=== PATIENT | female | born 1940 | race Caucasian/White ===

== ENCOUNTER 2020-12-06 10:55 | Emergency (ER) | payer MEDICARE, OTHER ==
[~2020-12-06] VITALS: Ht 157.5 cm; Wt 63.5 kg
[~2020-12-06 10:55] MED LIST: ALBIPROI; ASPI81CH PO; Ativan1 MG PO; BENZ100A PO; BUDE200IP INH; BUPR150ER PO; CEPH500 PO; CITA20 PO; DONE10 PO; DOXE10 PO; Duoneb 2.5-0.5 M3 ML INH; IPRAOI INH; LEVFLO500 PO; LEVSOD88 PO; LORA1 PO; METPRE4DP PO; MIRALAX17 GM PO; NAPR500 PO; NYST237S PO; OMEP20ER PO; PANT40 PO; PRED20 PO; QVAR7.3 G1 IH; SENN187 PO; SIMV10 PO; Synthroid88 MCG PO; Ventolin Soln3 ML INH; Zofran8 MG PO
[2020-12-06] MEDS ORDERED: SYNTHROID75 MCG PO (13:01)
[2020-12-06] MEDS ORDERED: Hydroxychloroq200 MG PO (13:01)
[2020-12-06] MEDS ORDERED: Norco 5-325 Ta1 EACH PO (13:18)
[2020-12-06] MEDS ORDERED: ONDA4ODT MM (13:34)
== END 2020-12-06 13:45 | disposition home or self-care (01) ==
LOC: ER 10:55
DX: M54.16 Radiculopathy, lumbar region (principal); J44.9 Chronic obstructive pulmonary disease, unspecified; E03.9 Hypothyroidism, unspecified; Z79.899 Other long term (current) drug therapy; Z79.82 Long term (current) use of aspirin; Z91.030 Bee allergy status; Z87.891 Personal history of nicotine dependence
CPT/HCPCS: 72100; 99283-25; A9270

== ENCOUNTER → 2021-01-11 | Outpatient (CLI) | payer MEDICARE, OTHER ==
[~2021-01-11] MED LIST changes: +Hydroxychloroq200 MG PO; +Norco 5-325 Ta1 EACH PO; +ONDA4ODT MM; +SYNTHROID75 MCG PO
== END | disposition home or self-care (01) ==
LOC: LAB 11:08 → LAB SHORT 11:08 → LAB FUT 01-11 16:35
DX: R10.9 Unspecified abdominal pain (principal)
CPT/HCPCS: 87086

== ENCOUNTER 2021-07-27 10:40 | Emergency (ER) | payer MEDICARE, OTHER ==
[~2021-07-27] VITALS: Ht 147.3 cm; Wt 60.3 kg
[2021-07-27] MEDS ORDERED: BENZ100A PO (11:21)
[2021-07-27] MEDS ORDERED: MONT10T PO (11:22)
[2021-07-27] MEDS ORDERED: IPRAT-ALBUT 0.5-3 ML INH (11:23)
[2021-07-27 13:07] LABS: BASOPHILS ABSOLUTE AUTO 0.05 K/mm3 (0.00-0.23); BASOPHILS PERCENT AUTO 1 % (0-2); EOSINOPHILS ABSOLUTE AUTO 0.11 K/mm3 (0.00-0.68); EOSINOPHILS PERCENT AUTO 1 % (0-6); Hematocrit 36.6 % (33.0-51.0); Hemoglobin 11.6 g/dL (11.5-16.0); IMMATURE GRAN ABSOLUTE AUTO 0.03 K/mm3 (0.00-0.10); IMMATURE GRAN PERCENT AUTO 0 % (0-1); LYMPHOCYTES ABSOLUTE AUTO 1.13 K/mm3 (0.84-5.20); LYMPHOCYTES PERCENT AUTO 14 % (21-46); MONOCYTES ABSOLUTE AUTO 0.26 K/mm3 (0.16-1.47); MONOCYTES PERCENT AUTO 3 % (4-13); Mean Corpuscular HGB 29.1 pg (26.0-34.0); Mean Corpuscular HGB Conc 31.7 g/dL (31.5-36.5); Mean Corpuscular Volume 92 fL (80-100); Mean Platelet Volume 9.5 fL (9.1-12.4); NEUTROPHILS ABSOLUTE AUTO 6.63 K/mm3 (1.96-9.15); NEUTROPHILS PERCENT AUTO 81 % (41-73); Platelet Count 306 K/mm3 (150-400); RDW Coefficient Variation 13.1 % (11.7-14.2); RDW Standard Deviation 43.9 fL (35.1-46.3); Red Blood Cell Count 3.99 M/mm3 (3.80-5.20); White Blood Cell Count 8.21 K/mm3 (4.00-11.30)
[2021-07-27 13:52] LABS: Alanine Aminotransfer (ALT/SGP 19 U/L (12-78); Albumin, Blood 3.3 g/dL (3.4-5.0); Albumin/Globulin Ratio 0.9 (0.8-1.8); Alk Phos 105 U/L (50-136); Anion Gap 5 mmol/L (6-16); Aspartate Aminotrans (AST/SGOT 26 U/L (12-37); Bilirubin, Total 0.2 mg/dL (0.1-1.0); Blood Urea Nitrogen 10 mg/dL (8-24); Bun/Creatinine Ratio 16.4 (12.0-20.0); CO2, Blood 24 mmol/L (21-32); Calcium, Blood 8.2 mg/dL (8.5-10.1); Chloride, Blood 111 mmol/L (98-108); Creatinine, Blood 0.61 mg/dL (0.40-1.00); Globulin, Blood 3.8 g/dL (2.2-4.0); Glomerular Filtration Rate >60 (60-); Glucose, Blood 112 mg/dL (70-99); Potassium, Blood 4.1 mmol/L (3.5-5.5); Sodium, Blood 140 mmol/L (136-145); Total Protein, Blood 7.1 g/dL (6.4-8.2)
[2021-07-27] MEDS ORDERED: ONDA4ODT MM (14:10)
[2021-07-27] MEDS ORDERED: MECL25 PO (14:10)
== END 2021-07-27 14:25 | disposition home or self-care (01) ==
LOC: ER 10:40
PROVIDERS: Emergency Medicine
DX: R00.1 Bradycardia, unspecified (principal); H81.8X2 Other disorders of vestibular function, left ear; E03.9 Hypothyroidism, unspecified; Z87.891 Personal history of nicotine dependence; Z79.899 Other long term (current) drug therapy; Z91.030 Bee allergy status; Z79.82 Long term (current) use of aspirin
CPT/HCPCS: 36415; 70450; 80053; 85025; 93005; 93010; 96374; 99284-25; A9270; J2405; J7030

== ENCOUNTER → 2021-12-23 | Outpatient (CLI) | payer MEDICARE, OTHER ==
[~2021-12-23] MED LIST changes: +IPRAT-ALBUT 0.5-3 ML INH; +MECL25 PO; +MONT10T PO
== END | disposition home or self-care (01) ==
LOC: PLD 13:43 → LAB SHORT 13:43
DX: L57.0 Actinic keratosis (principal)
CPT/HCPCS: 88305

== ENCOUNTER 2023-07-30 08:51 | Day surgery (SDC) | payer MEDICARE ==
[~2023-07-30] VITALS: Ht 144.8 cm; Wt 61.6 kg
[~2023-07-30 08:51] MED LIST changes: +ADVAIR; +AMLO5 PO; +Balanced Salt Epinephrine Irrigation Solution 500 mL IR SCH; +COMBIVENT RESPIM4 G1; +ESCI10 PO; +FAMO20 PO; +FLONASE ALLERG9.9 M2; +Lidocaine HCl/Pf 1% 5 ML VIAL XX SCH; +Moxifloxacin HCL 0.5 MG/0.1 ML 0.4MLSYR RIGHTEYE SCH; +NS 500 ML IV ONE; +PHENYLEPHRINE\\TROPICAMIDE\\TETRACAINE OPHTHALMIC DILATING SOLN RIGHTEYE PRN; +Povidone-Iodine 450 DROP/30 ML Solution ONE; +Povidone-Iodine 450 DROP/30 ML Solution RIGHTEYE SCH; +Triamcinolone Inj Susp 40 MG / ML 1ML Vial INJ SCH; +Triamcinolone Inj Susp 40 MG / ML 1ML Vial ONE
[2023-07-30] MEDS ORDERED: NS 500 ML IV ONE (09:17)
--- NOTE | 2023-07-30 09:17 | NUR ---
07/30/23 0917 Chelsey Galindo AT 0910 PLETHEOET AT 0912
[2023-07-30] MEDS ORDERED: FentaNYL Citrate 50 MCG/ML 2 ML Injection ONE (09:27)
[2023-07-30] MEDS ORDERED: Tetracaine HCl 0.5% Opth Soln 15 ml RIGHTEYE ONE (09:49)
[2023-07-30] MEDS ORDERED: Midazolam HCl 1MG / ML 2ML Vial ONE (09:59)
[2023-07-30 10:21] VITALS: BP 159/61
== END 2023-07-30 10:34 | disposition home or self-care (01) ==
LOC: ORSCSDS 08:51
PROVIDERS: Ophthalmology
PROC: 08RJ3JZ Replacement of Right Lens with Synthetic Substitute, Percutaneous Approach (ICD-10-PCS; principal; 2023-07-30 10:00)
DX: H25.13 Age-related nuclear cataract, bilateral (principal); I10 Essential (primary) hypertension; K21.9 Gastro-esophageal reflux disease without esophagitis; J44.9 Chronic obstructive pulmonary disease, unspecified; F03.90 Unspecified dementia, unspecified severity, without behavioral disturbance, psychotic disturbance, mood disturbance, and anxiety; R06.02 Shortness of breath; Z87.891 Personal history of nicotine dependence; Z79.899 Other long term (current) drug therapy
CPT/HCPCS: J2250; J3010; J3301; J7040; V2632

== ENCOUNTER 2024-04-09 00:15 | Inpatient (IN) | payer MEDICARE ==
[~2024-04-09] VITALS: Ht 162.6 cm; Wt 56.2 kg
[~2024-04-09 00:15] MED LIST changes: -Balanced Salt Epinephrine Irrigation Solution 500 mL IR SCH; +COMBIVENT RESPIM4 G1 INH; -Lidocaine HCl/Pf 1% 5 ML VIAL XX SCH; -Moxifloxacin HCL 0.5 MG/0.1 ML 0.4MLSYR RIGHTEYE SCH; -NS 500 ML IV ONE; -PHENYLEPHRINE\\TROPICAMIDE\\TETRACAINE OPHTHALMIC DILATING SOLN RIGHTEYE PRN; -Povidone-Iodine 450 DROP/30 ML Solution ONE; -Povidone-Iodine 450 DROP/30 ML Solution RIGHTEYE SCH; -Triamcinolone Inj Susp 40 MG / ML 1ML Vial INJ SCH; -Triamcinolone Inj Susp 40 MG / ML 1ML Vial ONE
[2024-04-09 03:31] LABS: Alanine Aminotransfer (ALT/SGP 23 U/L (12-78); Albumin, Blood 3.4 g/dL (3.4-5.0); Albumin/Globulin Ratio 0.8 (0.8-1.8); Alk Phos 150 U/L (50-136); Anion Gap 12 mmol/L (3-11); Aspartate Aminotrans (AST/SGOT 121 U/L (12-37); Bilirubin, Total 4.8 mg/dL (0.1-1.0); Blood Urea Nitrogen 33 mg/dL (8-24); Bun/Creatinine Ratio 30.3 (12.0-20.0); CO2, Blood 23 mmol/L (21-32); Calcium, Blood 8.7 mg/dL (8.5-10.1); Chloride, Blood 107 mmol/L (98-108); Creatinine, Blood 1.09 mg/dL (0.40-1.00); Ethanol (Alcohol), Blood, Med <3 mg/dL; Free Thyroxine 1.14 ng/dL (0.70-1.60); Globulin, Blood 4.1 g/dL (2.2-4.0); Glomerular Filtration Rate 50 (60-); Glucose, Blood 119 mg/dL (70-99); Potassium, Blood 4.8 mmol/L (3.5-5.5); Sodium, Blood 137 mmol/L (136-145); Total Protein, Blood 7.5 g/dL (6.4-8.2)
[2024-04-09 04:27] LABS: Source, Urine Clean Catch
[2024-04-09] MEDS ORDERED: Azithromycin 500 MG in NS 250 ML IV ONE (04:30)
[2024-04-09] MEDS ORDERED: CefTRIAXone Sodium 1,000 MG in NS 100 ML IV ONE (04:30)
[2024-04-09 04:35] LABS: Appearance, Urine Bloody (Clear); Blood, Urine 5+ (Neg); Color, Urine Brown (P-Yellow); Glucose Qualitative, Urine Neg (Neg); Ketones, Urine Neg (Neg); Leukocyte Esterase, Urine 2+ (Neg); Nitrite, Urine Neg (Neg); Protein, Urine 4+ (Neg); Urobilinogen, Urine 1+ (Normal)
[2024-04-09 04:47] LABS: U Amphetamine Screen Not Detected; U Barbituate Screen Not Detected; U Benzodiazapine Screen DETECTED; U Buprenorphine Screen Not Detected; U Cannabinoids Screen Not Detected; U Cocaine Screen Not Detected; U Methadone Screen Not Detected; U Methamphetamine Screen Not Detected; U Opiates Screen Not Detected; U Oxycodone Screen Not Detected; U Phencyclidine Screen Not Detected
[2024-04-09 04:48] LABS: Bilirubin, Urine 1+ (Neg)
[2024-04-09 04:53] LABS: Amorphous Heavy (0-Heavy); Bacteria Mod /hpf; Squamous Epithelial Cells Not Seen /hpf (Few)
[2024-04-09 05:17] LABS: Hematocrit 19.9 % (33.0-51.0); Hemoglobin 7.1 g/dL (11.5-16.0); Mean Corpuscular HGB 35.7 pg (26.0-34.0); Mean Corpuscular HGB Conc 35.7 g/dL (31.5-36.5); Mean Corpuscular Volume 100 fL (80-100); NRBC ABSOLUTE 0.51 K/mm3 (0.00-0.02); NRBC Auto 1.8 /100 WBC (0.0-0.2); RDW Coefficient Variation 18.2 % (11.7-14.2); RDW Standard Deviation 57.3 fL (35.1-46.3); Red Blood Cell Count 1.99 M/mm3 (3.80-5.20)
[2024-04-09 05:25] LABS: White Blood Cell Count 26.94 K/mm3 (4.00-11.30)
[2024-04-09 05:26] LABS: Mean Platelet Volume 9.4 fL (9.1-12.4); Platelet Count 462 K/mm3 (150-400)
[2024-04-09 05:30] LABS: BAND PERCENT MAN 4 % (0-8); BASOPHILS ABSOLUTE MAN 0.26 K/mm3 (0.00-0.23); BASOPHILS PERCENT MAN 1 % (0-2); EOSINOPHILS ABSOLUTE MAN 3.23 K/mm3 (0.00-0.68); EOSINOPHILS PERCENT MAN 12 % (0-6); LYMPHOCYTES ABSOLUTE MAN 2.15 K/mm3 (0.84-5.20); LYMPHOCYTES PERCENT MAN 8 % (21-46); MONOCYTES ABSOLUTE MAN 2.42 K/mm3 (0.16-1.47); MONOCYTES PERCENT MAN 9 % (4-13); MYELOCYTE ABSOLUTE MAN 0.53 K/mm3 (0.00-0.00); MYELOCYTE PERCENT MAN 2 % (0-0); NEUTROPHILS ABSOLUTE MAN 18.31 K/mm3 (1.96-9.15); SEG NEUTROPHILS PERCENT MAN 64 % (41-73); TOTAL CELLS COUNTED 100
[2024-04-09] MEDS ORDERED: FLU VACC TS2024-25(6MOS UP)/PF 45 MCG/0.5 ML SYRINGE IM ONE (05:45)
[2024-04-09] MEDS ORDERED: Ondansetron HCl 2 MG / ML 2ML Vial IV PRN (05:45)
[2024-04-09 06:31] LABS: Bilirubin, Direct 0.6 mg/dL (0.0-0.3); Bilirubin, Indirect 3.7 mg/dL (0.1-0.7); Bilirubin, Total 4.3 mg/dL (0.1-1.0); Percent Saturation 95.1 % (15.0-50.0)
[2024-04-09] MEDS ORDERED: Lactobacil 2-S.Thermo-Bifido 1 1 Cap PO SCH (09:00)
[2024-04-09 09:06] LABS: IMMATURE RETIC FRACTION 37.6 % (2.3-16.0); RETIC HGB EQUIVALENT 40.6 pg (28.20-36.60); RETICULOCYTE ABSOLUTE 0.1909 M/mm3 (0.0200-0.1100); RETICULOCYTE COUNT PERCENT 10.1 % (0.50-2.50)
[2024-04-09] MEDS ORDERED: BUPROPION XL150 M1 PO (10:58)
[2024-04-09] MEDS ORDERED: COMBIVENT RESPIM4 G1 IH (10:59)
[2024-04-09] MEDS ORDERED: ALEN70 PO (11:01)
[2024-04-09 11:02] LABS: Hematocrit 20.7 % (33.0-51.0); Hemoglobin 7.5 g/dL (11.5-16.0); IMMATURE RETIC FRACTION 42.7 % (2.3-16.0); RETIC HGB EQUIVALENT 41.1 pg (28.20-36.60); RETICULOCYTE ABSOLUTE 0.1553 M/mm3 (0.0200-0.1100); RETICULOCYTE COUNT PERCENT 7.43 % (0.50-2.50)
[2024-04-09 14:07] VITALS: BP 118/77
[2024-04-09 15:46] VITALS: BP 137/60
--- NOTE | 2024-04-09 15:49 | NUR ---
NOTE: AT 1541 THIS RN NOTIFIED BY FURNACE COOLERMOMO MAJOR. PER MOMO PATIENT HAD A 12 SECONDS RUN OF SVT. THIS RN ASSESS THE PATIENT; PATIENT LAYING IN BED APPEARS SLEEPING/SNOORING, DENIES CP/PRESSURE, SOB, N/V AND DIZZINESS. VITALS TAKEN; TEMP 97.7, RR 16, HR 75 BPM, BP 137/60, O2 96% ON RA. NOTIFIED DR. FAM, NO NEW ORDERS, CTM.
[2024-04-09] MEDS ORDERED: NS 1,000 ML IV SCH (15:50)
[2024-04-09 16:24] LABS: Hematocrit 19.4 % (33.0-51.0)
--- NOTE | 2024-04-09 16:53 | NUR ---
ADMISSION/SHIFT SUMMARY: PATIENT ARRIVES TO ROOM AT 1400 VIA GURNEY FROM ER FOR DX'S OF ANEMIA. PATIENT TRANSFERRED TO BED c 1 ASSIST. ADMISSION AND SKIN ASSESSMENT c 2 RN'S VERIFIED COMPLETED. PATIENT OREINTATED TO ROOM AND CALL SYSTEM. PATIENT A/OX3 AND FORGETFUL AT TIMES. PATIENT CALM, PLEASANT, COOPERATIVE c CARE AND ABLE TO FOLLOW DIRECTION. PATIENT DENIES CP/PRESSURE, SOB, N/V AND DIZZINESS. PATIENT ON TELE, SR HR IN THE 70'S BPM. PATIENT HAD OT EPISODE OF SVT (SEE EARLIER NOTE). DR. FAM'S AWARE OF THIS ISSUE. PATIENT REPEAT H/H THIS PM 7.0/19.4. SCD'S TO BLE'S IN PLACED. VITAL SIGNS REVIEWED. CALL LIGHT IN REACH.
[2024-04-09] MEDS ORDERED: Ipratropium/Albuterol SulF 2.5-0.5MG/3 ML Amp INH SCH ×2 (17:10→19:03)
[2024-04-09 19:10] VITALS: BP 116/58
[2024-04-09] MEDS ORDERED: Famotidine 20 MG Tab PO SCH (21:00)
[2024-04-09 22:09] LABS: Hemoglobin 6.4 g/dL (11.5-16.0); Mean Corpuscular HGB 36.8 pg (26.0-34.0); Mean Corpuscular HGB Conc 36.6 g/dL (31.5-36.5); Mean Corpuscular Volume 101 fL (80-100); Mean Platelet Volume 9.1 fL (9.1-12.4); NRBC Auto 0.9 /100 WBC (0.0-0.2); Platelet Count 361 K/mm3 (150-400); RDW Coefficient Variation 19.6 % (11.7-14.2); RDW Standard Deviation 55.2 fL (35.1-46.3); Red Blood Cell Count 1.74 M/mm3 (3.80-5.20); White Blood Cell Count 23.05 K/mm3 (4.00-11.30)
[2024-04-09 22:12] LABS: Hematocrit 17.5 % (33.0-51.0)
[2024-04-09 22:31] LABS: BAND PERCENT MAN 5 % (0-8); BASOPHILS ABSOLUTE MAN 0.23 K/mm3 (0.00-0.23); BASOPHILS PERCENT MAN 1 % (0-2); EOSINOPHILS ABSOLUTE MAN 4.37 K/mm3 (0.00-0.68); EOSINOPHILS PERCENT MAN 19 % (0-6); LYMPHOCYTES ABSOLUTE MAN 2.76 K/mm3 (0.84-5.20); LYMPHOCYTES PERCENT MAN 12 % (21-46); METAMYELOCYTE ABSOLUTE MAN 0.46 K/mm3 (0.00-0.00); METAMYELOCYTE PERCENT MAN 2 % (0-0); MONOCYTES ABSOLUTE MAN 0.69 K/mm3 (0.16-1.47); MONOCYTES PERCENT MAN 3 % (4-13); MYELOCYTE ABSOLUTE MAN 0.23 K/mm3 (0.00-0.00); MYELOCYTE PERCENT MAN 1 % (0-0); NEUTROPHILS ABSOLUTE MAN 14.29 K/mm3 (1.96-9.15); SEG NEUTROPHILS PERCENT MAN 57 % (41-73); TOTAL CELLS COUNTED 100
--- NOTE | 2024-04-09 23:35 | NUR ---
RECEIVED CALL BACK FROM HOSPITALIST WHO GAVE VERBAL ORDER TO TRANSFUSE ONE UNIT PRBCs IF PT'S HBG DROPS BELOW 6 OR SHE BECOMES SYMPTOMATIC. PT HAS DENIED SHORTNESS OF BREATH THIS SHIFT. PT CURRENTLY LYING QUIETLY IN BED WITH EYES CLOSED AND EVEN, UNLABORED RESPIRATIONS. TELE SR@ 77 W/PACs. HOSPITALIST REQUESTED LABS BE DRAWN AT 0500, CALLED LAB AND REQUESTED.
[2024-04-10 04:27] VITALS: BP 140/64
[2024-04-10 04:55] LABS: Hematocrit 19.3 % (33.0-51.0); Hemoglobin 6.9 g/dL (11.5-16.0); Mean Corpuscular HGB 36.5 pg (26.0-34.0); Mean Corpuscular HGB Conc 35.8 g/dL (31.5-36.5); Mean Corpuscular Volume 102 fL (80-100); Mean Platelet Volume 9.2 fL (9.1-12.4); NRBC ABSOLUTE 0.17 K/mm3 (0.00-0.02); NRBC Auto 0.7 /100 WBC (0.0-0.2); Platelet Count 377 K/mm3 (150-400); RDW Coefficient Variation 21.2 % (11.7-14.2); RDW Standard Deviation 57.3 fL (35.1-46.3); Red Blood Cell Count 1.89 M/mm3 (3.80-5.20); White Blood Cell Count 22.76 K/mm3 (4.00-11.30)
--- NOTE | 2024-04-10 04:56 | NUR ---
SHIFT SUMMARY: SHIV IS A&OX2-3. VSS, NO ACUTE EVENTS OVERNIGHT. PT'S HR DOES INCREASE TO THE LOW 110'S WHEN AMBULATING TO THE BATHROOM. IV TO L FA PATENT, FLUIDS INFUSING PER MAR. SHE HAS RESTED QUIETLY FOR THE MAJORITY OF THE SHIFT. SHE HAS DENIED ANY DIFFICULTY BREATHING, DIZZINESS, OR LIGHTHEADEDNESS. PT'S RESPIRATORY RATE DOES INCREASE WHEN UP TO THE BATHROOM, RETURNED TO BASELINE SHORTLY AFTER RETURNING TO BED. SHE IS LYING IN BED WITH THE CALL LIGHT IN REACH, BED IN LOWEST POSITION. WILL GIVE REPORT TO DAY SHIFT RN.
[2024-04-10 05:18] LABS: Albumin/Globulin Ratio 0.8 (0.8-1.8); Bilirubin, Total 1.3 mg/dL (0.1-1.0); Calcium, Blood 8.1 mg/dL (8.5-10.1); Creatinine, Blood 0.87 mg/dL (0.40-1.00); Magnesium, Blood 2.4 mg/dL (1.6-2.4); Potassium, Blood 3.6 mmol/L (3.5-5.5)
[2024-04-10 05:42] LABS: BASOPHILS PERCENT MAN 0 % (0-2); EOSINOPHILS ABSOLUTE MAN 7.96 K/mm3 (0.00-0.68); EOSINOPHILS PERCENT MAN 35 % (0-6); LYMPHOCYTES ABSOLUTE MAN 4.55 K/mm3 (0.84-5.20); LYMPHOCYTES PERCENT MAN 20 % (21-46); METAMYELOCYTE ABSOLUTE MAN 0.22 K/mm3 (0.00-0.00); METAMYELOCYTE PERCENT MAN 1 % (0-0); MONOCYTES ABSOLUTE MAN 0.22 K/mm3 (0.16-1.47); MONOCYTES PERCENT MAN 1 % (4-13); NEUTROPHILS ABSOLUTE MAN 9.78 K/mm3 (1.96-9.15); SEG NEUTROPHILS PERCENT MAN 43 % (41-73); TOTAL CELLS COUNTED 100
[2024-04-10] MEDS ORDERED: Azithromycin 500 MG in NS 250 ML IV SCH (06:00)
[2024-04-10] MEDS ORDERED: Levothyroxine Sodium 0.075 MG Tab PO SCH (06:00)
[2024-04-10] MEDS ORDERED: CefTRIAXone Sodium 1,000 MG in NS 100 ML IV SCH (06:00)
[2024-04-10 07:43] VITALS: BP 127/58
[2024-04-10] MEDS ORDERED: Citalopram Hydrobromide 20 MG Tab PO SCH (09:00)
[2024-04-10] MEDS ORDERED: AmLODIPine Besylate 5 MG Tab PO SCH (09:00)
[2024-04-10] MEDS ORDERED: Fluticasone 0.05% Nasal Spray SCH (09:00)
[2024-04-10] MEDS ORDERED: buPROPion HCL 150 MG TAB.SR.12H PO SCH (09:00)
[2024-04-10] MEDS ORDERED: Dexamethasone Sod Phos 10 MG/ML 1ML VIAL IV SCH (10:00)
[2024-04-10] MEDS ORDERED: Enoxaparin 40 MG/0.4 ML SYR SC SCH (10:00)
[2024-04-10 14:39] VITALS: BP 113/63
--- NOTE | 2024-04-10 16:36 | NUR ---
SHIFT SUMMARY: NO ACUTE EVENTS THIS SHIFT. PATIENT A/OX2-3, FORGETFUL AND SOME CONFUSION ON/OFF T/O THE DAY. PATIENT DENIES CP/PRESSURE, SOB, N/V AND DIZZINESS. PATIENT HAS HAD NO EVENTS ON TELE, SR HR IN THE HIGH 70'S BPM. PATIENT REPORTS NO APPETITE, DECLINED HER BREAKFAST AND LUNCH MEAL, CONTINENT OF BLADDER, AMBULATES TO BATHROOM c SBA/FWW. PATIENT SLEPT ON/OFF T/O SHIFT. PATIENT STARTED ON DEXAMETHASONE PER ORDER. PATIENT SON CAME FOR VISIT THIS AM AND STAYED FOR AN HOUR, UPDATE GIVEN TO SON REGARDING PATIENT CONDITION AND PLAN OF CARE. PATIENT SON VERBALIZED UNDERSTANDING AND NO FURTHER QUESTIONS. PATIENT RECEIVED SCHEDULED MEDS PER EMAR. VITAL SIGNS REVIEWED. BED ALARM ON FOR SAFETY. CALL LIGHT IN REACH.
[2024-04-10 19:46] VITALS: BP 139/77
[2024-04-11] VITALS (10 sets, daily range): BP systolic 110–154; BP diastolic 50–104
--- NOTE | 2024-04-11 04:25 | NUR ---
NOC SUMMARY- PT HAD NO ISSUES THIS SHIFT. PT HAS RESTED COMFORTABLY THROUGHOUT SHIFT. PT DENIES ANY DISCOMFORT. PT TURNS SELF IN BED. NO TELE EVENTS REPORTED. CALL LIGHT IN REACH AND BED ALARM ON.
[2024-04-11 06:20] LABS: Mean Corpuscular HGB 38.2 pg (26.0-34.0); Mean Corpuscular HGB Conc 35.6 g/dL (31.5-36.5); Mean Platelet Volume 9.8 fL (9.1-12.4); NRBC ABSOLUTE 0.32 K/mm3 (0.00-0.02); NRBC Auto 1.7 /100 WBC (0.0-0.2); Platelet Count 387 K/mm3 (150-400); RDW Coefficient Variation 24.8 % (11.7-14.2); RDW Standard Deviation 60.5 fL (35.1-46.3); Red Blood Cell Count 1.52 M/mm3 (3.80-5.20); White Blood Cell Count 18.71 K/mm3 (4.00-11.30)
[2024-04-11 06:25] LABS: Mean Corpuscular Volume 107 fL (80-100)
[2024-04-11 06:26] LABS: Hematocrit 16.3 % (33.0-51.0); Hemoglobin 5.8 g/dL (11.5-16.0)
--- NOTE | 2024-04-11 06:46 | NUR ---
0630- CRITICAL LAB VALUES REPORTED. HGB AND HCT. PROVIDER NOTIFIED AND ORDER FOR 1 UNIT PRBC WAS ORDERED.
--- NOTE | 2024-04-11 07:30 | NUR ---
DR FAM NOTIFIED OF HIGH TRANSFUSION RISK AND HIGH RISK TRANSFUSION FORM THAT NEEDS TO BE SIGNS PRIOR TO TRANSFUSION CONCERNING ORDER OF 1 UNIT OF BLOOD. ALSO NOTIFIED OF THE PT'S HGB LEVELS.
[2024-04-11 07:31] LABS: BAND PERCENT MAN 1 % (0-8); BASOPHILS PERCENT MAN 0 % (0-2); EOSINOPHILS PERCENT MAN 0 % (0-6); LYMPHOCYTES ABSOLUTE MAN 5.23 K/mm3 (0.84-5.20); LYMPHOCYTES PERCENT MAN 28 % (21-46); METAMYELOCYTE ABSOLUTE MAN 0.18 K/mm3 (0.00-0.00); METAMYELOCYTE PERCENT MAN 1 % (0-0); MONOCYTES ABSOLUTE MAN 1.12 K/mm3 (0.16-1.47); MONOCYTES PERCENT MAN 6 % (4-13); MYELOCYTE ABSOLUTE MAN 0.18 K/mm3 (0.00-0.00); MYELOCYTE PERCENT MAN 1 % (0-0); NEUTROPHILS ABSOLUTE MAN 11.97 K/mm3 (1.96-9.15); SEG NEUTROPHILS PERCENT MAN 63 % (41-73); TOTAL CELLS COUNTED 100
[2024-04-11] MEDS ORDERED: Ondansetron HCl 2 MG / ML 2ML Vial IV ONE ×2 (11:40→17:40)
[2024-04-11] MEDS ORDERED: Acetaminophen 325 MG TABLET PO ONE ×2 (11:40→17:40)
[2024-04-11] MEDS ORDERED: DiphenhydrAMINE HCl 50 MG/ML 1ML Vial IV PRN (11:40)
[2024-04-11] MEDS ORDERED: NS 250 ML IV PRN (11:50)
[2024-04-11] MEDS ORDERED: [UNRECOGNIZED DRUG - OTHER] IV ONE (12:00)
--- NOTE | 2024-04-11 13:00 | NUR ---
BLOOD VERIFIED BY MONA GONZALEZ AND SEAN GONZALEZ.
[2024-04-11] MEDS ORDERED: RITUXIMAB ABBS IV SCH (16:00)
[2024-04-11] MEDS ORDERED: SODIUM CHLORIDE IV SCH (16:00)
--- NOTE | 2024-04-11 18:38 | NUR ---
PT IS A/OX4, CONFUSION AT TIMES. PT ON RA, UP WITH SBA TO THE RESTROOM. 2L NC DELIVERED DURING AMBULATION DUE TO SOB. PT ON TELE RUNNING SINUS RYTHYM IN THE 'S. PT RECIEVED 1 UNIT OF BLOOD THIS AFTERNOON. CURRENTLY RUNNING RUTUXIMAB. PT VISITED BY DAUGHTER DURING THE DAY.
[2024-04-11 22:40] LABS: HAPTOGLOBIN <10 mg/dL (30-200)
[2024-04-11 23:13] LABS: MYOGLOBIN SERUM 97 ng/mL (<=58)
[2024-04-12 05:11] VITALS: BP 129/65
[2024-04-12 06:02] LABS: Hematocrit 25.3 % (33.0-51.0); Hemoglobin 8.8 g/dL (11.5-16.0); Mean Corpuscular HGB 34.8 pg (26.0-34.0); Mean Corpuscular HGB Conc 34.8 g/dL (31.5-36.5); Mean Platelet Volume 9.3 fL (9.1-12.4); NRBC ABSOLUTE 0.25 K/mm3 (0.00-0.02); NRBC Auto 1.5 /100 WBC (0.0-0.2); Platelet Count 334 K/mm3 (150-400); RDW Standard Deviation 56.1 fL (35.1-46.3); Red Blood Cell Count 2.53 M/mm3 (3.80-5.20); White Blood Cell Count 16.51 K/mm3 (4.00-11.30)
[2024-04-12 06:04] LABS: Mean Corpuscular Volume 100 fL (80-100)
[2024-04-12 06:29] LABS: Bun/Creatinine Ratio 13.7 (12.0-20.0); Calcium, Blood 7.8 mg/dL (8.5-10.1); Creatinine, Blood 0.81 mg/dL (0.40-1.00); Potassium, Blood 3.5 mmol/L (3.5-5.5)
--- NOTE | 2024-04-12 06:47 | NUR ---
SHIFT SUMMARY PT RECEIVED DOSE OF RITUXIMAB WITHOUT ANY SIDE EFFECTS NOTED. OOB WITH SBA TO BATHROOM. PT DENIES SOB WHEN AMBULATING. IV CHANGED DUE TO LEAKING. IV ANTIBIOTICS CONTINUE. SLEPT OFF/ON THROUGH THE NIGHT. BED ALARM ON, SIDE RAILS UP X2, CALL LIGHT WITHIN REACH.
[2024-04-12 07:06] VITALS: BP 143/77
[2024-04-12] MEDS ORDERED: Potassium Chloride 20 MEQ TabCR PO ONE (10:50)
[2024-04-12 15:13] VITALS: BP 132/86
[2024-04-12 16:37] LABS: HEPATITIS A ANTIBODY, IGM Negative (Negative); HEPATITIS B CORE ANTIBODY, IGM Negative (Negative); HEPATITIS B SURFACE ANTIGEN Negative (Negative); HEPATITIS C AB CIA INTERP Negative (Negative)
--- NOTE | 2024-04-12 17:00 | NUR ---
SHIFT SUMMARY PT IS A/OX3-4, CONFUSION AT TIMES OF DATE AND TIME. NO ACUTE EVENTS THROUGHOUT THIS SHIFT. PT REMAINS ON RA, SATS MAINTAINING >96%. ON TELE RUNNING SINUS RYTHYM IN THE 70-80'S. PT SLEPT FOR MUCH OF THE SHIFT. DAUGHTER AT BEDSIDE THIS AFTERNOON. PT AMBULATES WITH A 1 PERSON SBA TO ASSIST WITH LINES. NS RUNNING AT 75 ML/HR.
[2024-04-12 19:55] VITALS: BP 153/64
[2024-04-13 02:52] VITALS: BP 130/54
--- NOTE | 2024-04-13 05:36 | NUR ---
SHIFT SUMMARY PT O X3, CONFUSED AND FORGETFUL AT TIMES. OUT OF BED WITH STAND BY ASSIST. DENIES ANY SHORTNESS OF BREATH. SLEPT LONG INTERVALS. DENIES ANY COMPLAINTS. IV ANTIBIOTICS CONTINUE. BED ALARM ON, CALL LIGHT WITHIN REACH, SIDE RAILS UP X2.
[2024-04-13 05:57] LABS: BASOPHILS ABSOLUTE AUTO 0.01 K/mm3 (0.00-0.23); BASOPHILS PERCENT AUTO 0 % (0-2); EOSINOPHILS ABSOLUTE AUTO 0.12 K/mm3 (0.00-0.68); EOSINOPHILS PERCENT AUTO 1 % (0-6); Hemoglobin 7.8 g/dL (11.5-16.0); IMMATURE GRAN ABSOLUTE AUTO 0.08 K/mm3 (0.00-0.10); IMMATURE GRAN PERCENT AUTO 1 % (0-1); LYMPHOCYTES ABSOLUTE AUTO 2.39 K/mm3 (0.84-5.20); LYMPHOCYTES PERCENT AUTO 24 % (21-46); MONOCYTES ABSOLUTE AUTO 0.95 K/mm3 (0.16-1.47); MONOCYTES PERCENT AUTO 9 % (4-13); Mean Corpuscular HGB 34.7 pg (26.0-34.0); Mean Corpuscular HGB Conc 33.9 g/dL (31.5-36.5); Mean Corpuscular Volume 102 fL (80-100); Mean Platelet Volume 9.5 fL (9.1-12.4); NEUTROPHILS ABSOLUTE AUTO 6.55 K/mm3 (1.96-9.15); NEUTROPHILS PERCENT AUTO 65 % (41-73); NRBC ABSOLUTE 0.09 K/mm3 (0.00-0.02); NRBC Auto 0.9 /100 WBC (0.0-0.2); Platelet Count 280 K/mm3 (150-400); RDW Coefficient Variation 27.3 % (11.7-14.2); RDW Standard Deviation 88.1 fL (35.1-46.3); Red Blood Cell Count 2.25 M/mm3 (3.80-5.20)
[2024-04-13 06:20] LABS: Albumin, Blood 2.7 g/dL (3.4-5.0); Albumin/Globulin Ratio 0.8 (0.8-1.8); Bilirubin, Total 0.7 mg/dL (0.1-1.0); Bun/Creatinine Ratio 14.4 (12.0-20.0); Calcium, Blood 7.6 mg/dL (8.5-10.1); Creatinine, Blood 0.7 mg/dL (0.40-1.00); Globulin, Blood 3.3 g/dL (2.2-4.0); Potassium, Blood 3.4 mmol/L (3.5-5.5)
[2024-04-13 07:45] VITALS: BP 145/66
[2024-04-13] MEDS ORDERED: Polyethylene Glycol 3350 17 gm PO PRN (10:55)
[2024-04-13] MEDS ORDERED: Sennosides 8.6 MG Tab PO SCH (11:00)
[2024-04-13] MEDS ORDERED: Sennosides 8.6 MG Tab PO PRN (11:26)
[2024-04-13] MEDS ORDERED: Potassium Chloride 20 MEQ TabCR PO ONE (13:00)
[2024-04-13 15:33] VITALS: BP 143/67
--- NOTE | 2024-04-13 15:59 | NUR ---
DISCUSSED CASE WITH BEDSIDE RN. PATIENT WAS ASLEEP DURING MY ROUNDS. PER BEDSIDE RN PATIENT MAY DISCHARGE TOMORROW. PC WILL CONTINUE TO FOLLOW.
--- NOTE | 2024-04-13 18:04 | NUR ---
PATIENT IS ALERT AND ORIENTED TO SELF, FAMILY AND FOLLOWING DIRECTIONS. HGB 7.8 THIS AM, PLAN IS TO STAY ANOTHER NIGHT AND POSSIBLE DC TOMORROW. PATIENT WILL DC RAKAN WITH HH AND THE NEW FWW IN HER ROOM. ON RA. VSS. FLUIDS DC'D. UP TO THE CHAIR AND BATHROOM. WILL CONTINUE TO MONITOR
[2024-04-13 19:57] VITALS: BP 129/59
[2024-04-14 03:30] VITALS: BP 169/61
--- NOTE | 2024-04-14 04:46 | NUR ---
SHIFT SUMMARY. NO ACUTE CHANGES PATIENT IS A&OX4. PATIENT CALLS APPROPRIATELY AND IS ABLE TO MAKE HER NEEDS KNOWN. PATIENT IS A 1P SBA c FWW-PATIENT DOES NOT LIKE WALKER AND SAYS SHE "WILL USE IT BECAUSE HER DAUGHTER ISNT FEELING WELL BUT SHE DOESNT WANT TO USE IT". PATIENT HAS TELE ON WITH LEADS IN PLACE-NO CARDIAC EVENTS NOTED THIS SHIFT. PATIENT RESTING T/O SHIFT WITH RESPIRATIONS EQUAL AND UNLABORED. BED IS LOCKED IN THE LOWEST POSITION WITH CALL LIGHT IN REACH, BED EXIT IS ON FOR PATIENT SAFETY. CARE IS ONGOING.
[2024-04-14 06:01] LABS: BASOPHILS ABSOLUTE AUTO 0.01 K/mm3 (0.00-0.23); BASOPHILS PERCENT AUTO 0 % (0-2); EOSINOPHILS ABSOLUTE AUTO 0.05 K/mm3 (0.00-0.68); EOSINOPHILS PERCENT AUTO 1 % (0-6); Hematocrit 26.2 % (33.0-51.0); IMMATURE GRAN ABSOLUTE AUTO 0.06 K/mm3 (0.00-0.10); IMMATURE GRAN PERCENT AUTO 1 % (0-1); LYMPHOCYTES PERCENT AUTO 24 % (21-46); MONOCYTES ABSOLUTE AUTO 0.81 K/mm3 (0.16-1.47); MONOCYTES PERCENT AUTO 9 % (4-13); Mean Corpuscular HGB 35.6 pg (26.0-34.0); Mean Corpuscular HGB Conc 34.4 g/dL (31.5-36.5); Mean Corpuscular Volume 104 fL (80-100); Mean Platelet Volume 9.5 fL (9.1-12.4); NEUTROPHILS ABSOLUTE AUTO 6.27 K/mm3 (1.96-9.15); NEUTROPHILS PERCENT AUTO 66 % (41-73); Platelet Count 293 K/mm3 (150-400); RDW Coefficient Variation 27.7 % (11.7-14.2); RDW Standard Deviation 96.1 fL (35.1-46.3); Red Blood Cell Count 2.53 M/mm3 (3.80-5.20)
[2024-04-14 06:30] LABS: Bun/Creatinine Ratio 17.9 (12.0-20.0); Calcium, Blood 8.2 mg/dL (8.5-10.1); Creatinine, Blood 0.73 mg/dL (0.40-1.00); Potassium, Blood 3.6 mmol/L (3.5-5.5)
[2024-04-14 07:30] VITALS: BP 150/69
[2024-04-14] MEDS ORDERED: SENN187 PO (13:10)
[2024-04-14] MEDS ORDERED: MIRALAX17 GM PO (13:10)
[2024-04-14 14:56] LABS: Performing Lab BWNW
--- NOTE | 2024-04-14 15:58 | NUR ---
DISCHARGE NOTE PT A&OX3. PT COULDN'T RECALL DATE/TIME. PT WAS ADMITTED DUE TO ANEMIA. PT HAD NO COMPLAINTS OF SOB/FATIGUE/DIZZINESS. PT DID NOT REPORT PAIN THROUGH SHIFT. PT EDUCATED ABOUT DISCHARGE INSTRUCTIONS AND MEDS. DAUGHTER ARRIVED TO VICE PRESIDENT OF MANUFACTURING PT VIA AUTOMOBILE. DAUGHTER AND REGISTER REPAIRER ESCORTED PT BY WHEELCHAIR TO VEHICLE. PT WENT HOME WITH ALL PERSONAL ITEMS. MEDS FAXED TO PREFERED PHARMACY.
== END 2024-04-14 14:43 | disposition home health service (06) | DRG 809 ==
LOC: ER 00:15 → ERHOLD 05:41 → MEDS 05:41 → ENPENDDIS 04-14 10:35 → MEDS 04-14 14:43
PROVIDERS: Emergency Medicine; Internal Medicine; ADMIT Student in an Organized Health Care Education/Training Program
DX: D59.13 Mixed type autoimmune hemolytic anemia (principal); N17.9 Acute kidney failure, unspecified; N39.0 Urinary tract infection, site not specified; R17 Unspecified jaundice; F03.90 Unspecified dementia, unspecified severity, without behavioral disturbance, psychotic disturbance, mood disturbance, and anxiety; M32.9 Systemic lupus erythematosus, unspecified; J44.9 Chronic obstructive pulmonary disease, unspecified; K21.9 Gastro-esophageal reflux disease without esophagitis; M81.0 Age-related osteoporosis without current pathological fracture; Z28.21 Immunization not carried out because of patient refusal; F32.A Depression, unspecified; Z79.899 Other long term (current) drug therapy; Z90.49 Acquired absence of other specified parts of digestive tract; Z87.891 Personal history of nicotine dependence
CPT/HCPCS: 36415; 71045; 76705; 80048; 80053; 80074; 80320; 81001; 82247; 82248; 82550; 82607; 82728; 83010; 83540; 83550; 83615; 83735; 83874; 84145; 84439; 84443; 85014; 85018; 85025; 85027; 85045; 85060; 86850; 86870; 86880; 86900; 86901; 86922; 87086; 93005; 93010; 94640; 94664; 94760; 96365; 97110; 97116; 97162; 97530; 99285-25; A9270; J0456; J0696; J1100; J1200; J1650; J2405; J7030; J7050; P9016; Q5115

== ENCOUNTER → 2024-05-26 | Outpatient (CLI) | payer MEDICARE ==
[~2024-05-26] MED LIST changes: +ALEN70 PO; +BUPROPION XL150 M1 PO; +COMBIVENT RESPIM4 G1 IH
[2024-05-26 15:41] LABS: BASOPHILS ABSOLUTE AUTO 0.04 K/mm3 (0.00-0.23); BASOPHILS PERCENT AUTO 0 % (0-2); EOSINOPHILS ABSOLUTE AUTO 0.01 K/mm3 (0.00-0.68); EOSINOPHILS PERCENT AUTO 0 % (0-6); Hematocrit 40.6 % (33.0-51.0); Hemoglobin 13.7 g/dL (11.5-16.0); IMMATURE GRAN ABSOLUTE AUTO 0.03 K/mm3 (0.00-0.10); IMMATURE GRAN PERCENT AUTO 0 % (0-1); LYMPHOCYTES ABSOLUTE AUTO 0.79 K/mm3 (0.84-5.20); LYMPHOCYTES PERCENT AUTO 8 % (21-46); MONOCYTES ABSOLUTE AUTO 0.09 K/mm3 (0.16-1.47); MONOCYTES PERCENT AUTO 1 % (4-13); Mean Corpuscular HGB 34.2 pg (26.0-34.0); Mean Corpuscular HGB Conc 33.7 g/dL (31.5-36.5); Mean Corpuscular Volume 101 fL (80-100); Mean Platelet Volume 10.7 fL (9.1-12.4); NEUTROPHILS ABSOLUTE AUTO 9.25 K/mm3 (1.96-9.15); NEUTROPHILS PERCENT AUTO 91 % (41-73); Platelet Count 214 K/mm3 (150-400); RDW Standard Deviation 48.1 fL (35.1-46.3); Red Blood Cell Count 4.01 M/mm3 (3.80-5.20); White Blood Cell Count 10.21 K/mm3 (4.00-11.30)
== END ==
LOC: LAB SHORT 15:04 → LAB 15:04
PROVIDERS: Family Medicine
DX: D59.10 Autoimmune hemolytic anemia, unspecified (principal)
CPT/HCPCS: 85025

== ENCOUNTER 2024-09-02 20:39 | Emergency (ER) | payer MEDICARE, OTHER ==
[~2024-09-02] VITALS: Ht 167.6 cm; Wt 68.0 kg
[2024-09-02] MEDS ORDERED: Ketorolac Tromethamine 15mg Vial IV ONE (21:20)
[2024-09-02] MEDS ORDERED: Ondansetron HCl 2 MG / ML 2ML Vial IV ONE (21:20)
[2024-09-02 21:22] LABS: BASOPHILS ABSOLUTE AUTO 0.08 K/mm3 (0.00-0.23); BASOPHILS PERCENT AUTO 1 % (0-2); EOSINOPHILS ABSOLUTE AUTO 0.46 K/mm3 (0.00-0.68); EOSINOPHILS PERCENT AUTO 4 % (0-6); Hematocrit 44.2 % (33.0-51.0); Hemoglobin 15.2 g/dL (11.5-16.0); IMMATURE GRAN ABSOLUTE AUTO 0.09 K/mm3 (0.00-0.10); IMMATURE GRAN PERCENT AUTO 1 % (0-1); LYMPHOCYTES ABSOLUTE AUTO 2.13 K/mm3 (0.84-5.20); LYMPHOCYTES PERCENT AUTO 16 % (21-46); MONOCYTES ABSOLUTE AUTO 0.34 K/mm3 (0.16-1.47); MONOCYTES PERCENT AUTO 3 % (4-13); Mean Corpuscular HGB 32.2 pg (26.0-34.0); Mean Corpuscular HGB Conc 34.4 g/dL (31.5-36.5); Mean Corpuscular Volume 94 fL (80-100); Mean Platelet Volume 9.3 fL (9.1-12.4); NEUTROPHILS ABSOLUTE AUTO 10.21 K/mm3 (1.96-9.15); NEUTROPHILS PERCENT AUTO 77 % (41-73); Platelet Count 235 K/mm3 (150-400); RDW Coefficient Variation 12.3 % (11.7-14.2); RDW Standard Deviation 42.7 fL (35.1-46.3); Red Blood Cell Count 4.72 M/mm3 (3.80-5.20); White Blood Cell Count 13.31 K/mm3 (4.00-11.30)
[2024-09-02 21:35] LABS: Albumin, Blood 3.9 g/dL (3.4-5.0); Albumin/Globulin Ratio 1.1 (0.8-1.8); Bilirubin, Total 0.7 mg/dL (0.1-1.0); Bun/Creatinine Ratio 28.4 (12.0-20.0); Calcium, Blood 9.3 mg/dL (8.5-10.1); Creatinine, Blood 0.74 mg/dL (0.40-1.00); Globulin, Blood 3.5 g/dL (2.2-4.0); Magnesium, Blood 2.8 mg/dL (1.6-2.4); Potassium, Blood 4.3 mmol/L (3.5-5.5); Total Protein, Blood 7.4 g/dL (6.4-8.2)
[2024-09-02 22:32] LABS: Source, Urine Clean Catch
[2024-09-02 22:41] LABS: Appearance, Urine Clear (Clear); Bilirubin, Urine Neg (Neg); Blood, Urine 1+ (Neg); Color, Urine Amber (P-Yellow); Glucose Qualitative, Urine Neg (Neg); Ketones, Urine Neg (Neg); Leukocyte Esterase, Urine Neg (Neg); Nitrite, Urine Neg (Neg); Protein, Urine Neg (Neg); Urobilinogen, Urine NORM (Normal)
[2024-09-02] MEDS ORDERED: Lactated Ringer's 1,000 ML IV ONE (22:55)
[2024-09-02 23:19] LABS: Bacteria Few /hpf; Red Blood Cells, Urine 0-2 /hpf (0-2); Squamous Epithelial Cells Few /hpf (Few); White Blood Cells, Urine 0-2 /hpf (0-5)
[2024-09-03 00:22] VITALS: BP 117/87
== END 2024-09-03 00:22 | disposition home or self-care (01) ==
LOC: ER 20:39
PROVIDERS: Student in an Organized Health Care Education/Training Program
DX: K59.00 Constipation, unspecified (principal); R10.30 Lower abdominal pain, unspecified; J44.9 Chronic obstructive pulmonary disease, unspecified; E03.9 Hypothyroidism, unspecified; Z87.891 Personal history of nicotine dependence; Z79.899 Other long term (current) drug therapy; Z79.51 Long term (current) use of inhaled steroids; Z91.030 Bee allergy status
CPT/HCPCS: 74177; 80053; 81001; 83690; 83735; 85025; 93005; 93010; 96361; 96374-59; 96375; 99285-25; J1885; J2405; J7120; Q9967

== ENCOUNTER → 2025-05-15 | Outpatient (CLI) | payer MEDICARE, OTHER | LOC: LAB SHORT 16:00 → LAB 16:00 | DX: R10.30 Lower abdominal pain, unspecified (principal) | CPT/HCPCS: 87086 ==